=== PATIENT | male | born 1950 | race Caucasian/White ===

== ENCOUNTER 2024-04-05 15:01 | Emergency (ER) | payer MEDICARE, OTHER, SELFPAY ==
[2024-04-05 15:02] VITALS: BP 151/74; PULSE 77; RESP 14; TEMP 36.3; O2SAT 98; BMI 26.2
[2024-04-05] MEDS: Smz/Tmp Ds Tablet 1 TABLET PO (15:42)
[2024-04-05] MEDS: Cephalexin 250 MG Capsule 500 MG PO (15:42)
--- NOTE | 2024-04-05 15:43 | EDS_ITS ---
HPI History of Present Illness HPI Narrative: 74-year-old male history of coronary disease, NM and CABG also history of prostate CA. On he noticed a red area behind his right knee in the popliteal fossa. Initially said that it started with an insect bite. This got a little worse. He was seen in urgent care today and they wanted to have it evaluated emergency department. He denies any fever chills or constitutional symptoms. No prior history. No other complaints. Chief Complaint: Lower Extremity Injury Informant: patient Occured/Mechanism Mechanism/Context: No injury and No blunt trauma Onset/Context/Timing Onset: Days Context: Gradual Onset Timing: Continuous Maximum Severity: Mild Associated Symptoms Associated Symptoms: Negative for Parasthesia, Weakness or Loss of Funtion Narrative Narrative: 74-year-old male rash behind his right knee since . Saw an urgent care and was sent to the ER. Denies any fever or chills. No trauma. Prior similar symptoms: No Recent Illness/Hospitalization: No PFSH PFSH Medical History Myocardial infarction Prostate cancer Home Medications ?Medication ?Instructions ?Recorded ?Last Taken ?Type cephalexin 500 mg capsule 500 mg PO Q6 7 days #28 caps 04/05/24 Unknown Rx sulfamethoxazole 800 1 tab PO BID 7 days #14 tabs 04/05/24 Unknown Rx mg-trimethoprim 160 mg tablet (Bactrim DS) Allergy/AdvReac Type Severity Reaction Status Date / Time enalapril AdvReac Intermediate Other Verified 04/05/24 15:08 niacin AdvReac Intermediate Other Verified 04/05/24 15:08 Surgical History Hx of CABG Social History Smoking Status: Former smoker ROS ROS ED ROS Narrative Denies recent illness. Denies fever or chills. Denies any constitutional symptoms. Review of Systems ROS Unobtainable: Denies due to encephalopathy Constitutional Constitutional ED: Denies chills or fever(s) Eyes Eyes: Denies blurry vision ENT ENT ED: Denies ear pain, rhinorrhea or sore throat Cardiovascular Cardiovascular: Denies chest pain or palpitations Respiratory/Chest Respiratory/Chest: Denies cough or dyspnea Gastrointestinal Gastrointestinal: Denies abdominal pain, constipation, diarrhea, nausea or vomiting Genitourinary Genitourinary ED: Denies dysuria or hematuria Musculoskeletal Musculoskeletal: Denies arthralgias, back pain, myalgias or neck pain Integumentary Denies abscess or Abrasions Neurologic Neurologic: Denies headache(s), paresthesias or weakness Psychiatric Psychiatric: Denies anxiety, depression, suicidal ideation or suicidal thoughts Endocrine Endocrinology: Denies polydipsia, polyphagia or polyuria Hematologic/Lymphatic Hematologic/Lymphatic: Denies easy bleeding, easy bruising or lymphadenopathy Allergic/Immunologic Allergic/Immunologic ED: Denies mouth swelling, tongue swelling or urticaria EXAM Physical Exam Narrative Exam Narrative: Well-appearing 74-year-old male. No acute distress. Standing at bedside. Vital signs are stable afebrile. H EENT exam unremarkable. Lungs clear. Heart regular rhythm no murmur. Abdomen soft nontender. Moving all 4 extremities. Neurovascular intact. Findings right knee there is about a 2 inch wide by 3 to 4 inch long strip of erythema does not specifically tender. This could be an additional allergic action with a secondary infection or just a cellulitis. There is no abscess. No pus. No crepitance. There is no involvement of the knee joint itself. He has full flexion extension of his knee. There is no swelling of the knee. There is no lymphangitic streaking. There is no inguinal lymphadenopathy. He has normal range of motion of both knees. Otherwise exam unremarkable. Const Vital Signs: 04/05/24 15:02 Temperature 97.3 F L Temperature Source Temporal Pulse Rate 77 Respiratory Rate 14 Blood Pressure 151/74 H Blood Pressure Mean 99 Pulse Ox 98 Positive well nourished and well developed; Negative for obese, cachectic, contractures or unkempt General Appearance ED: well developed and NAD; Negative for unkempt, cachectic or contractures Nutritional Appearance: Negative for cachectic or obese HEENT Reports moist mucous membranes normocephalic and atraumatic; Negative for trauma or tenderness Eyes PERRL General Eye ED: Negative for other Neck full ROM and supple Thyroid: Negative for tender Lymph Lymphatic: Negative for other Chest Wall inspection of chest normal and palpation of chest normal Chest: Negative for other Resp normal respiratory effort, no retractions and clear to auscultation bilaterally Effort and Inspection: Negative for pain with movement Auscultation: Negative for rales, rhonchi, wheezes or diminished lung sounds Cardio regular rate, regular rhythm, S1 normal heart sound, S2 normal heart sound and no murmurs Rate: Negative for bradycardia or tachycardic Rhythm: Negative for abnormal rhythm Bruits: Negative for other GI non-tender, non-distended and no masses Inspection: Negative for abdominal distention Auscultation: normoactive bowel sounds Palpation: soft; Negative for tender, guarding or rebound tenderness present Bladder / Kidney Exam: No other Back/Spine no CVA tenderness General Back: Negative for CVA tenderness Extremity normal to inspection and full ROM Extremity Narrative: Except right posterior knee in the popliteal fossa there is a 2 inch wide by 3 to 4 inch long strip of erythema consistent with either cellulitis or allergic reaction with cellulitis. No pus. No crepitus. No involvement of the knee. No lymphangitic streaking or inguinal lymphadenopathy. General Extremety ED: Negative for cyanosis, edema or weight-bearing difficulty General Extremity: Negative for cyanosis, edema or weight-bearing difficulty Neuro oriented x3, CN's II-XII intact bilaterally and moves all extremities Sensorium / Orientation: alert, oriented to person, oriented to place and oriented to time; Negative for orientation impaired, confused or lethargic Motor Exam: strength 5/5 throughout Psych mental status grossly normal Appearance: Negative for unkempt Speech: No other Mood & Affect: Negative for anxious Skin no wounds Skin Narrative: Rash popliteal fossa right knee. Lesions: no lesions Rashes: No no rashes MDM MDM MDM Narrative Medical decision making narrative: 74-year-old male either has a local allergic reaction possibly secondary infection or a primary cellulitis popliteal fossa right knee. Nothing to drain. No involvement of the knee. No lymphadenopathy or streaking. He will be started on Bactrim and Keflex for 7 days and follow-up if not improving return if worse. He does not need any labs or imaging. Clinically looks well. He is afebrile. Patient will be given a dose of antibiotics here prior to discharge. Discharge Plan Triage Chief Complaint: Lower Extremity Injury ED Provider: Giovani Ramirez Dx/Rx/DC Orders Clinical Impression: Cellulitis Instructions: ED Cellulitis Prescriptions: New cephalexin 500 mg capsule 500 mg PO Q6 7 Days Qty: 28 0RF sulfamethoxazole-trimethoprim [Bactrim DS] 800-160 mg tablet 1 tab PO BID 7 Days Qty: 14 0RF Referrals: Eusebia Romero MD [[facility]] - 1 Week if not improving Activity Restrictions/Additional Instructions: This may have initially been an allergic reaction versus a soft tissue infection. It looks infected at this time. Will start you on antibiotics Kef ravindra 4 times a day for 1 week and Bactrim twice a day for 1 week. Follow-up with your doctor if not improving. Return if this is getting a lot worse. If it spreads outside the area that I traced out or is getting a lot larger, painful, fever or streaks up your leg or swelling your knee we need to be evaluated. Tylenol for pain. Print Language: Bhutanese Disposition Disposition: Home, Self Care
== END 2024-04-05 15:51 | disposition home or self-care (01) ==
LOC: ED 15:44
PROVIDERS: Emergency Provider Emergency Medicine; PCP Internal Medicine; Visit Provider Emergency Medicine
DX: L03.115 Cellulitis of right lower limb (principal); I25.10 Atherosclerotic heart disease of native coronary artery without angina pectoris; Z87.891 Personal history of nicotine dependence; Z95.1 Presence of aortocoronary bypass graft; I25.2 Old myocardial infarction
CPT/HCPCS: 99284

== ENCOUNTER → 2025-05-26 | Outpatient (CLI) | payer MEDICARE, OTHER, SELFPAY | END | disposition home or self-care (01) | LOC: MTLAB 15:55 | PROVIDERS: PCP Internal Medicine; Referring Provider Physician Assistant; Visit Provider Physician Assistant | DX: L30.8 Other specified dermatitis (principal) | CPT/HCPCS: 36415; 86617 ==